=== PATIENT | female | born 2000 | race Caucasian/White ===

== ENCOUNTER → 2022-03-21 18:51 | Outpatient (ROUT) | payer OTHER, SELFPAY ==
[2022-03-21 19:26] LABS: Hematocrit 33.6 % (36-46); Hemoglobin 11.3 g/dL (12.0-16.0); Mean Corpuscular HGB Conc 33.7 % (30-36); Mean Corpuscular Hemoglobin 28.3 PG (26-34); Mean Corpuscular Volume 84.1 fL (80-100); Platelet Count 302 X10^3/uL (150-400); Red Blood Cell Count 3.99 X10^6/uL (4.0-5.2); Red Cell Distribution Width 12.9 % (11.6-14.8); White Blood Cell Count 8.3 X10^3/uL (4.5-11.0)
[2022-03-21 20:02] LABS: GTT (PREG) 1 Hour PP 50gm Dose 98 mg/dL (76-139)
== END ==
PROVIDERS: Visit Provider Nurse Practitioner Obstetrics & Gynecology
DX: Z34.90 Encounter for supervision of normal pregnancy, unspecified, unspecified trimester (principal); Z3A.26 26 weeks gestation of pregnancy
CPT/HCPCS: 82950; 85027

== ENCOUNTER 2022-06-13 08:05 | Inpatient (IN) | payer OTHER, SELFPAY ==
--- NOTE | 2022-06-13 08:24 | PM.OBHP.1 ---
OB HPI Date/Time Date of admission: 06/13/22 Date Patient Seen: 06/13/22 Time Patient Seen: 08:24 History of Present Condition Chief complaint: OBS OF LABOR : 1 Para: 0 Estimated Date of Delivery: 06/08/22 Estimated Gestational Age (weeks): 40.5 Narrative: GLENN ESPAÑA is a 21 year old female @ [id number] by LMP who presents for evaluation of labor. Contractions started last night at 2100 and intensified at 0300. Now breathing through regular contractions and requesting admission for labor. Uncomplicated PN care with CNM. Desires low intervention . , Barry, is present and supportive. History of Present care: good care, initiated at week # (12), number of visits (10) and pounds weight gain (30) Dating criteria: LMP confirmed by 1st trimester US Ultrasounds: normal mid trimester US Obstetrical complications: none Medical complications: none Preadmission Labs Blood type: O (+) positive -: Antibody screen: negative, GBS status: negative, HBsAG: negative, HIV: negative and RPR/VDLR: negative -: Chlamydia screen: not detected and Gonorrhea screen: not detected -: Rubella: immune and Varicella: immune HCT: 33.6 HCAB: negative Cell-free DNA: Negative 1 hr GTT: 95 Evaluation Evaluation Baseline heart rate: 140 Variability: Moderate (11-25) monitor accelerations: Present Monitor Decelerations: Absent Contraction Frequency (minutes): 4 Uterine Contraction Intensity: Moderate Dilation (cm): 4 Effacement (%): 90 Dilation: 3-4 cm Effacement: >/=80% station: -2 Position of cervix: posterior Consistency: soft Steiner score: 8 PFSH Medical History Depression Raynaud disease Family History Sister Depression Mother Multiple sclerosis Social History (Updated 06/13/22 @ 09:12 by Martita Cooper CNM) marital status: household members: spouse lives independently: Yes occupational status: employed Smoking Status: Never smoker substance use type: does not use Meds Home Medications and Allergies Home Medications Medication Instructions Recorded Confirmed Type No Known Home Medications 06/13/22 06/13/22 History Allergies Allergy/AdvReac Type Severity Reaction Status Date / Time No Known Drug Allergies Allergy Verified 06/13/22 08:59 Review of Systems Review of Systems ROS: Yes All systems reviewed with the patient and are negative except as otherwise documented OB Exam Narrative Exam Narrative: VS: BP 117/80, HR 89bpm Resp Effort & Inspection: normal respiratory effort and able to speak in complete sentences Auscultation: clear to auscultation bilaterally Cardio Rate: regular rate Rhythm: regular rhythm Heart Sounds: S1 normal and S2 normal Presentation: vertex Assessment and Plan Assessment and Plan Assessment and Plan narrative: A: Term nullipara Approaching active labor No indication for GBS prophylaxis Cat I FHR P: Admit, routine orders. May switch to IA. Labor support PRN. Reassess in 4 hours or sooner, PRN.
[2022-06-13 09:08] LABS: COVID19 -Nasal RAPID Negative (Negative)
--- NOTE | 2022-06-13 12:30 | PM.OBPNLAB ---
Date/Time Date Patient Seen: 06/13/22 Time Patient Seen: 12:20 Pain Control Pain control: tolerating well Comments: Sitting on ball, breathing through occasional contractions. Things have intensified since admission, but still not consistently strong. Agrees to CE. VS: BP 117/80, HR 89bpm Pelvic Exam Dilation (cm): 5 Effacement (%): 90 station: -1 Amniotic membrane status: Intact Contractions Monitor mode: External Pitocin rate (mU/min): 0 Contraction frequency (min): 3 Contraction duration (min): 1 Contraction intensity: Strong/Firm Status status: Category l (Reassuring by intermittent auscultation) Heart Rate Baseline: 130 Assessment and Plan Assessment: active labor Plan: continuous present management (expectant mangement) Comments: Labor support PRN. Reassess in 4 hours or sooner, PRN.
[2022-06-13 12:49] VITALS: BP 117/80
[2022-06-13 14:08] LABS: Add Manual Diff / Slide Review NO; Basophils Absolute Auto 0 /uL (0-100); Basophils Percent Auto 0.4 % (0-2); Eosinophils Absolute Auto 0 /uL (0-450); Eosinophils Percent Auto 0.6 % (2-4); Hematocrit 36.9 % (36-46); Hemoglobin 11.9 g/dL (12.0-16.0); Lymphocytes Absolute Auto 1200 /uL (1100-4500); Lymphocytes Percent Auto 13.8 % (25-40); Mean Corpuscular HGB Conc 32.3 % (30-36); Mean Corpuscular Hemoglobin 25.9 PG (26-34); Monocytes Absolute Auto 600 /uL (0-900); Monocytes Percent Auto 7.4 % (3-14); Neutrophils Absolute Auto 6800 /uL (1500-7000); Neutrophils Percent Auto 77.8 % (50-75); Platelet Count 295 X10^3/uL (150-400); Red Blood Cell Count 4.61 X10^6/uL (4.0-5.2); Red Cell Distribution Width 15.9 % (11.6-14.8); White Blood Cell Count 8.7 X10^3/uL (4.5-11.0)
--- NOTE | 2022-06-13 16:31 | PM.OBPNLAB ---
Date/Time Date Patient Seen: 06/13/22 Time Patient Seen: 16:32 Pain Control Pain control: tolerating well Comments: Standing and rocking in room. Breathing through strong contractions every 2 minutes. Has recently been noticing bloody show. Currently back on continuous EFM for decrease heard in FHR during intermittent auscultation. VS: BP 121/76, HR 76bpm, T 36.6C Temporal Pelvic Exam Dilation (cm): 5 Effacement (%): 90 station: -1 Comments: CE deferred. Contractions Monitor mode: External Pitocin rate (mU/min): 0 Contraction frequency (min): 2 Contraction duration (min): 1 Contraction intensity: Strong/Firm Status status: Category l Heart Rate Baseline: 135 Monitor Accelerations: Present Monitor Decelerations: Absent Monitor Variability: Moderate Assessment and Plan Assessment: active labor Plan: continuous present management (expectant management) Comments: Reassess in 4 hours or sooner, PRN.
[2022-06-13] MEDS: LACTATED RINGERS 1,000 ML 100 ML IV ×2 (18:02→19:06)
--- NOTE | 2022-06-13 19:10 | PM.OBPNLAB ---
Date/Time Date Patient Seen: 06/13/22 Time Patient Seen: 19:00 Pain Control Pain control: epidural Comments: Now resting comfortably after epidural placement. VS: 112/62, HR 79bpm, T 36.4C temporal Pelvic Exam Dilation (cm): 9 Effacement (%): 100 station: -1 Amniotic membrane status: Bulging Contractions Monitor mode: External Pitocin rate (mU/min): 0 Contraction frequency (min): 3 Contraction duration (min): 1 Contraction intensity: Strong/Firm Status status: Category ll Heart Rate Baseline: 140 Monitor Accelerations: Present Monitor Decelerations: Early and Variable Monitor Variability: Moderate Assessment and Plan Assessment: active labor Plan: continuous present management
--- NOTE | 2022-06-13 20:58 | PM.OBPRVD ---
Events: Meconium Stained Fluid Labor & Delivery Delivery date: 06/13/22 Intrapartal Events: None Cervical ripening method: none Induction method: none Delivery monitor: external FHT and external uterine Route of delivery: Episiotomy description: None L&D Laceration Description: Superficial (labial splits) Quantitative Blood Loss: 200 Anesthesia Type: Epidural Narrative: Second stage initiated at C/C/+1. Rapid descent of vertex with maternal efforts, coaching and encouragement. NSVB of a vigorous baby boy in JANE position over an intact vagina and perineum. There was no nuchal cord and the shoulders delivered without additional maneuvers. was placed on maternal abdomen for drying and skin to skin. Expectant management of the third stage of labor, per patient request. After cessation of pulsation, the cord was double clamped by CNM and cut by FOB. Cord blood sample was collected. Gentle cord traction and singe maternal push led to spontaneous, Schultze delivery of an apparently intatc placenta, membranes and 3VC. Fundus immediately firm and bleeding minimal. QBL 200mL. Both mother and baby stable and skin to skin as I left the room. [place] Baby 1: Infant gender: Male Presentation: vertex Position: Left Occiput Anterior Placenta delivery description: Spontaneous Cord Vessel Description: 3 Vessels score (1 min): 9 score (5 min): 9 weight: 3.375 kg Plan for aftercare: Routine care
[2022-06-13] MEDS: DERMOPLAST SPRAY 20% 60 ML 1 SPRAY TOP (21:54)
[2022-06-13] MEDS: KETOROLAC 30 MG/ML VIAL IV (21:55)
[2022-06-14] MEDS: IBUPROFEN 600 MG TABLET PO ×2 (04:08→15:39)
[2022-06-14] MEDS: ACETAMINOPHEN 325 MG TABLET 650 MG PO ×2 (04:08→15:39)
--- NOTE | 2022-06-14 11:05 | P.DS_ITS ---
Discharge Providers Provider Date of admission: 06/13/22 08:05 Discharge Date: 06/14/22 Primary care physician: Sidney Woods MD Consults: 06/14/22 19:58 Consult to Boat Engines Installer Routine Comment: Discharge provider: Martita Cooper CNM Summary Hospital Course Date Patient Seen: 06/14/22 Time Patient Seen: 11:05 Diagnoses: O80 Hospital Course: PPD1: Stable s/p NSVB. Voiding and ambulating independently. Tolerating a gen eral diet. Has been declining pain medication. with assistance from RN and feeling like this is improving. Lochia is light without clots. Eager for discharge to home this evening. Peripartum Data Infant Delivery Method: Natural Vaginal Laceration Description: None Episiotomy description: None Procedures: O80 complications: none [place] 1: Gender: Male Discharge Diagnosis (1) Encounter for full-term uncomplicated delivery: Status: Acute Status at Discharge Cognitive/behavioral status at discharge: oriented and calm Functional status at discharge: independent ambulation Overall status at discharge: patient is progressing back to baseline Time Spent with Patient Time attestation: Total time spent providing and/or coordinating discharge services: Time spent: Less than 30 minutes Objective Labs Result Diagrams: 06/13/22 13:42 Labs: Laboratory Results - last 24 hr 06/13/22 06/13/22 13:42 13:42 WBC 8.7 RBC 4.61 Hgb 11.9 L Hct 36.9 MCV 80.0 MCH 25.9 L MCHC 32.3 RDW 15.9 H Plt Count 295 Neut % (Auto) 77.8 H Lymph % (Auto) 13.8 L [place] % (Auto) 7.4 Eos % (Auto) 0.6 L Baso % (Auto) 0.4 Neut # (Auto) 6800 Lymph # (Auto) 1200 [place] # (Auto) 600 Eos # (Auto) 0 Baso # (Auto) 0 Blood Type O Positive Antibody Screen Negative Exam Vital Signs (past 8 hours): BP 117/74, HR 74bpm, RR 16/min, T 97.9F Temporal Other: Fundus firm @ u-1, lochia scant, no clots. Discharge Plan Discharge Plan Patient Disposition: Home Provider Discharge Comment: this evening after a few more independent breast feeds Discharge orders & Medications Prescriptions: New ibuprofen 600 mg Tablet 600 mg PO Q6HR PRN (Reason: Pain, Mild (1-3)) 14 Days Qty: 30 0RF No Action No Known Home Medications Follow up/Referrals: Sidney Woods MD [Primary Care Provider] - Martita Cooper CNM [[facility] Yard Labor Supervisor] - (Follow-up by phone 06/26/22 @ 3:45pm Follow-up in office 07/23/22 @ 1:30pm) Diet/Activity/Treatments Diet: Regular Activity: pelvic rest x 6 weeks Skin/Wound/Dressing Care Report to your healthcare provider any signs of infection, such as:: chills, fever, increased pain, unusual drainage and unusual redness Visit Report/Discharge Packet Instructions: DI for Depression Discharge Data Primary Care Provider: Sidney Woods
== END 2022-06-14 16:35 | disposition home or self-care (01) | DRG 807 ==
PROVIDERS: Admitting Provider Nurse Practitioner Obstetrics & Gynecology; PCP Family Medicine; Referring Provider Nurse Practitioner Obstetrics & Gynecology; Visit Provider Nurse Practitioner Obstetrics & Gynecology
DX: O80 Encounter for full-term uncomplicated delivery (principal); Z37.0 Single live birth; Z3A.40 40 weeks gestation of pregnancy; Z20.822 Contact with and (suspected) exposure to COVID-19
CPT/HCPCS: 36415; 59050; 85025; 86850; 86900; 86901; 87635; C9803; G0379; J1885

== ENCOUNTER → 2024-05-21 08:34 | Outpatient (CLI) | payer OTHER, SELFPAY ==
--- NOTE | 2024-05-21 08:35 | DI.US.S_ITS ---
PROCEDURE: US OB >= 14 WEEKS FETUS INDICATIONS: 2O WEEK ANATOMY SCAN OUTSIDE/PRIOR DATING DATA: Last menstrual period (LMP): 01/05/2024. LMP-based estimated date of delivery (YEFRI): 10/11/2024 working YEFRI. First dating scan (date and location): 03/09/2024. Estimated date of delivery (YEFRI) from first dating scan: 10/09/2024. TECHNIQUE: Real-time scanning was performed of the fetus, with image documentation and biometric measurements. COMPARISON: None available for review FINDINGS: General: A single living intrauterine gestation is present. Presentation: Vertex. Placenta: Placental position is posterior , without previa. Amniotic fluid index: 16.4 cm, normal range is 5-24 cm. Single deepest vertical pocket is 5.3 cm. heart rate: 145 beats per minute. Maternal cervical canal: 3.5 cm long. Normal lower limit is 2.5 cm. biometrics: Biparietal diameter: 4.6 cm, 20 weeks Head circumference: 17.6 cm, 20 weeks and 1 day Abdominal circumference: 16.5 cm, 21 weeks and 4 days Femur length: 3.4 cm, 20 weeks and 3 days Clinically estimated gestational age: 19 weeks and 4 days Composite gestational age from present scan: 20 weeks and 4 days Estimated weight and percentile: 388 g, 98% Anatomic survey: Neuro: Ventricles are non-dilated at less than 10 mm. Cisterna magna is normal at 3-11 mm. Cerebellum is normal in size and morphology. Nuchal skin fold: Normal at less than 6 mm between 14-21 weeks gestational age. Face: Nose and lips, facial profile are normal. Spine: No evidence for spina bifida. Heart: 4-chambered heart is present, with normal ventricular outflow tracts. Diaphragm: Diaphragm is intact. Stomach: Left-sided stomach is present. Kidneys: No hydronephrosis. Normal is less than 5 mm in 2nd trimester, less than 7 mm in 3rd trimester. Cord: 3-vessel cord has orthotopic insertion. Bladder: Normal in size. Extremities: All 4 extremities identified. Possible posterior fibroid measuring 4.2 x 3.6 cm. Placental cord origin is marginal, 1.1 cm mid superior edge IMPRESSION: Living intrauterine gestation in vertex presentation. Growth is larger than expected with EFW at the 98th percentile, driven primarily by the large abdominal circumference. Normal JAS Cord origin is marginal, 1.1 cm from the superior placental edge. Possible posterior uterine fibroid. Dictated by: Espinoza Ronquillo M.D. on 05/21/2024 at 11:01 Approved by: Espinoza Ronquillo M.D. on 05/21/2024 at 11:06
== END ==
PROVIDERS: PCP Family Medicine; Referring Provider Nurse Practitioner Obstetrics & Gynecology; Visit Provider Nurse Practitioner Obstetrics & Gynecology
DX: Z34.92 Encounter for supervision of normal pregnancy, unspecified, second trimester (principal); Z3A.20 20 weeks gestation of pregnancy
CPT/HCPCS: 76811

== ENCOUNTER 2024-10-12 09:20 | Inpatient (IN) | payer OTHER, SELFPAY ==
--- NOTE | 2024-10-12 09:57 | PM.OBHP.1 ---
OB HPI Date/Time Date of admission: 10/12/24 Date Patient Seen: 10/12/24 Time Patient Seen: 09:57 History of Present Condition Chief complaint: OBS OF LABOR : 2 Para: 1 Estimated Date of Delivery: 10/11/24 Estimated Gestational Age (weeks): 40.1 Narrative: Ashly Vazquez is a 23 year old female at 40.1 weeks by LMP concordant with 9week 1 day ultrasound. She sarted having irregular contractions 0t 2200 10/11/24, overnight they became more regular around 0600 am this morning. She has had a small amount of bloody show, and lost mucous plug this morning. No leaking of fluid. Good movement. Breathing well through contractions using comb in hand for distraction, coping well. Accompanied by her Barry. Planning unmedicated labor and . History of Present care: good care Dating criteria: LMP confirmed by 1st trimester US Ultrasounds: normal mid trimester US (growth 98% percentile, declined 3rd trimester US) Obstetrical complications: other (Second trimester anemia) Preadmission Labs Blood type: O (+) positive -: Antibody screen: negative, Cystic fibrosis screen: negative, GBS status: negative, HBsAG: negative, HIV: negative, HSV 1: negative, HSV 2: negative and RPR/VDLR: negative -: Chlamydia screen: not detected and Gonorrhea screen: not detected -: Rubella: immune and Varicella: immune HCT: 33.8 HCAB: negative PAP: Normal Cell-free DNA: Negative x3, MsAFP negative Urine: Negative 1 hr GTT: 87 Prior (ies) History: Hx # Term Pregnancies: 1 Hx # Pregnancies: 0 Number of Living Children: 1 Multiple births: 0 Spontaneous abortions: 0 Ectopic pregnancies: 0 Elective abortions: 0 Evaluation Evaluation Baseline heart rate: 140 Variability: Moderate (11-25) monitor accelerations: Present Monitor Decelerations: Absent and Variable Contraction Frequency (minutes): 2 (2-5) Uterine Contraction Intensity: Strong/Firm Category of Tracing: Appropriate for gestational age Status: Category l Dilation (cm): 5 Effacement (%): 90 Dilation: >/=5 cm Effacement: >/=80% station: -1 Position of cervix: anterior Consistency: soft Steiner score: 12 [facility] Medical History Depression Raynaud disease Family History (Updated 10/12/24 @ 10:18 by Asuncion Garg CNM, ARNP) Sister Depression Mother Multiple sclerosis Other Cancer Hypertension Social History marital status: household members: spouse lives independently: Yes occupational status: employed Smoking Status: Former smoker substance use type: does not use Meds Home Medications and Allergies Allergies Allergy/AdvReac Type Severity Reaction Status Date / Time No Known Drug Allergies Allergy Verified 06/13/22 08:59 Review of Systems Review of Systems ROS: Yes All systems reviewed with the patient and are negative except as otherwise documented OB Exam Vital signs Blood Pressure: 120/80 Pulse Rate: 88 Respiratory Rate: 16 Temperature: 36.6 F HENMT Head: normal to inspection and normocephalic Mouth: oral mucosae normal and lip normal Eyes General: appearance normal, both eyes and all related structures Resp Effort & Inspection: normal respiratory effort and able to speak in complete sentences Auscultation: clear to auscultation bilaterally Cardio Rate: regular rate Rhythm: regular rhythm Heart Sounds: S1 normal and S2 normal Extremities Lower extremity: Yes normal to inspection GI Inspection: normal to inspection Palpation: Yes soft (between contractions) Auscultation: normal bowel sounds Assessment and Plan Assessment and Plan Assessment and Plan narrative: A: 23yo Term Labor RH positive GBS negative Anemia 2nd trimester Cat I FHR P: Expectant management Intermittent auscultation as appropriate Nitrous and epidural as needed for pain relief Anticipate Time-Based Coding :: [TOTAL MINUTES] spent with patient and on the chart (including review of chart, obtaining history, exam, reviewing outside data, placing orders, documenting exam and treatment plan, and counseling patient) on [DATE].
[2024-10-12 10:32] VITALS: BP 120/80; PULSE 88; RESP 16; TEMP 2.6; TEMP 36.6
[2024-10-12 10:56] LABS: Add Manual Diff / Slide Review NO; Basophils Absolute Auto 0 /uL (0-100); Basophils Percent Auto 0.5 % (0-2); Eosinophils Absolute Auto 0 /uL (0-450); Eosinophils Percent Auto 0.4 % (2-4); Hematocrit 41.4 % (36-46); Lymphocytes Absolute Auto 1200 /uL (1100-4500); Lymphocytes Percent Auto 13.1 % (25-40); Mean Corpuscular HGB Conc 33.8 % (30-36); Mean Corpuscular Hemoglobin 28.7 PG (26-34); Monocytes Absolute Auto 800 /uL (0-900); Monocytes Percent Auto 8.6 % (3-14); Neutrophils Absolute Auto 7200 /uL (1500-7000); Neutrophils Percent Auto 77.4 % (50-75); Platelet Count 237 X10^3/uL (150-400); Red Blood Cell Count 4.87 X10^6/uL (4.0-5.2); Red Cell Distribution Width 15.5 % (11.6-14.8); White Blood Cell Count 9.3 X10^3/uL (4.5-11.0)
--- NOTE | 2024-10-12 11:58 | PM.AN.REGBLK ---
Regional Block Pre-procedure PMH/ROS narrative: active labor PSH/Anesthesia history narrative: epidural x 1 no complications ASA Class: II Labs: Hct 41.4 % (36-46) 10/12/24 10:38 Plt Count 237 X10^3/uL (150-400) 10/12/24 10:38 Medications: Current Medications Generic Name Dose Route Start Last Admin Trade Name Jhonq PRN Reason Stop Dose Admin Acetaminophen 975 mg 10/12/24 09:52 Acetaminophen 325 Mg Tablet PO Q8H PRN Pain, Mild (1-3) Calcium Carbonate 1,000 mg 10/12/24 09:52 Calcium Carbonate 500 Mg Tab PO Q2HR PRN Dyspepsia Carboprost Tromethamine 250 mcg 10/12/24 09:36 Carboprost 250 Mcg/Ml Ampul IM Q90M PRN Bleeding Oxytocin/Lactated Ringer's 30 unit in 500 mls @ 200 mls/hr 10/12/24 09:36 Oxytocin Premix IV CONT PRN Bleeding Protocol Tranexamic Acid 1,000 mg/ 100 mls @ 600 mls/hr 10/12/24 09:36 Sodium Chloride IV NOW PRN Bleeding Lactated Ringer's 1,000 mls @ 100 mls/hr 10/12/24 09:45 Lactated Ringers IV 10/12/24 19:44 CONT MONE Lidocaine HCl 20 ml 10/12/24 09:36 Lidocaine 1% 20 Ml INJ INTRA-OP PRN Post Delivery Methylergonovine Maleate 0.2 mg 10/12/24 09:36 Methylergonovine 0.2 Mg Tablet PO Q6HR PRN Heavy Bleeding Methylergonovine Maleate 0.2 mg 10/12/24 09:36 Methylergonovine 0.2 Mg/Ml Vial IM NOW PRN Bleeding Mineral Oil 30 ml 10/12/24 09:36 Mineral Oil 30 Ml Udc TOP PRN PRN Version Misoprostol 800 mcg 10/12/24 09:36 Misoprostol 200 Mcg Tablet MO NOW PRN Bleeding Misoprostol 400 mcg 10/12/24 09:36 Misoprostol 200 Mcg Tablet SL NOW PRN Bleeding Naloxone HCl 0.2 mg 10/12/24 09:36 Naloxone 0.4 Mg/Ml Vial IV Q2MIN PRN Opiate Reversal Ondansetron HCl 4 mg 10/12/24 09:52 Ondansetron 4 Mg/2 Ml Inj IV Q4HR PRN Nausea And Vomiting Oxytocin 10 unit 10/12/24 09:36 Oxytocin 10 Unit/Ml Vial IM NOW PRN Bleeding Allergies: Allergies Allergy/AdvReac Type Severity Reaction Status Date / Time No Known Drug Allergies Allergy Verified 06/13/22 08:59 --: DPE with PCEA. pt drape and prep with sterile tchnique. v/s/s. l3 l4 interspace identified. lido 1% 3 cc skin wheel. jose luis advanced CÉSAR achieved. 27 g pencil point SAB needle CSF +, heme -. catheter threaded. test and loading dose administered as charted with infusion to follow. Procedure Insertion date: 10/12/24 Insertion time: 11:43 Prep/Local: betadine x3 (chlorhexadine) Interspace: l3 l4 Patient position: sitting Needle: 18 gauge Jose Luis Loss of resistance with: saline CÉSAR at (cm): 6 Catheter placed at SKIN (cm): 15 Sensory level: t10 Initial Medications TEST DOSE time: 11:43 TEST DOSE: 1.5% lidocaine with epinephrine 1:200k (mL): 3 BOLUS DOSE time: 11:45 BOLUS DOSE (mL): 4 BOLUS DOSE med: other (infusate) Infusion INFUSION: 0.125% bupivacaine and with fentanyl 2 mcg/mL Initial rate (mL/hr): 10 Post-procedure Anesthesia date START: 10/12/24 Anesthesia time START: 11:50
[2024-10-12] MEDS: LACTATED RINGERS 1,000 ML 100 ML IV (12:02)
[2024-10-12] MEDS: OXYTOCIN PREMIX 30 UNIT/500 ML PLAST..BAG 350 UNIT IV (13:00)
--- NOTE | 2024-10-12 14:06 | PM.OBPRVD ---
Labor & Delivery Delivery date: 10/12/24 Delivery Time: 12:52 Intrapartal Events: None Cervical ripening method: none Induction method: none Delivery monitor: external FHT and external uterine Route of delivery: L&D Laceration Description: None Quantitative Blood Loss: 315 Anesthesia Type: Epidural Complications: None Narrative: Labor progressed rapidly after arrival to unit. Contractions regular and painful on arrival. CE on arrival 5cm/100%/-1 station. Used nitrous and movement for comfort measures, requested epidural at 1149. After epidural she had good pain relief until she was complete and feeling the urge to push at 1235. She pushed effectively for a short 2nd stage. FHR was Cat II throughout 2nd stage. NSVB of vigorous male at 1252, direct OP presentation, no nuchal cord. Shoulders delivered easily with no additional maneuvers. Baby was placed on maternal abdomen when she was ready to receive him. Apgars 9/9. Oxytocin 30units/500ml LR started at 250cc/hr for AMTSL. They remained skin to skin while cord was cut and placenta was delivered. Placenta delivered spontaneously with maternal efforts and appeared to be intact. 3 vessel cord clamped and cut by CNM and FOB at 10 minutes of life after cord pulsing had stopped. Cord blood collected for blood typing. Perineum inspected and found to be intact. Blood loss measured and estimated loss is 315mL. Mom and baby left stable and is being initiated. They are thrilled to meet their second son, Brian. Asuncion WESTON, RAQUELM, IBCLC and Beatrice Forman RN, SNM [place] [facility] 1: gender: Male Presentation: vertex Position: Occiput Posterior Placenta delivery description: Spontaneous Cord Vessel Description: 3 Vessels score (1 min): 9 score (5 min): 9 weight: 3.79 kg Plan for aftercare: Routine care
[2024-10-12 14:14] VITALS: BP 120/80
[2024-10-12] MEDS: KETOROLAC 30 MG/ML VIAL IV (15:15)
--- NOTE | 2024-10-12 19:31 | PM.OBDS.1 ---
Discharge Providers Provider Date of admission: 10/12/24 09:20 Discharge Date: 10/12/24 Primary care physician: Sidney Woods MD Consults: 10/13/24 14:00 Consult to Tutorial Laboratory Supervisor Routine Comment: Discharge provider: Asuncion Garg CNM, ARNP Summary Hospital Course Date Patient Seen: 10/12/24 Time Patient Seen: 19:31 Diagnoses: O80 Hospital Course: Arrived to hospital in active labor, progressed without augmentation without interventions. Epidural for pain relief. Short second stage resulted in NSVB of baby boy. QBL 315 mL. Normal course with early discharge. . Peripartum Data Delivery Method: Natural Vaginal Laceration Description: None 1: Gender: Male Disposition of : home Discharge Diagnosis (1) Encounter for full-term uncomplicated delivery: Start Date: 10/12/24 Status: Acute Status at Discharge Cognitive/behavioral status at discharge: oriented and calm Functional status at discharge: independent ambulation Overall status at discharge: patient is progressing back to baseline Time Spent with Patient Time attestation: Total time spent providing and/or coordinating discharge services: Time spent: Less than 30 minutes Specific discharge activities: discharge teaching Objective Labs 10/12/24 10:38 Labs: Laboratory Results - last 24 hr 10/12/24 10:38 WBC 9.3 RBC 4.87 Hgb 14.0 Hct 41.4 MCV 85.0 MCH 28.7 MCHC 33.8 RDW 15.5 H Plt Count 237 Neut % (Auto) 77.4 H Lymph % (Auto) 13.1 L [place] % (Auto) 8.6 Eos % (Auto) 0.4 L Baso % (Auto) 0.5 Neut # (Auto) 7200 H Lymph # (Auto) 1200 [place] # (Auto) 800 Eos # (Auto) 0 Baso # (Auto) 0 Blood Type O Positive Antibody Screen Negative Exam Vital Signs (past 8 hours): - 10/12/24 14:14 Blood Pressure 120/80 Other: Fundus firm at U, midline. Lochia scant Perineum intact with minimal edema Discharge Plan Discharge Plan Patient Disposition: Home Discharge orders & Medications Follow up/Referrals: Sidney Woods MD [Primary Care Provider] - Asuncion Garg CNM, ARNP [Advanced Pooling Operator] - 1 Day (Follow up tomorrow for 24 hour BP check. visits: 2 weeks and 6 weeks as scheduled; details e-mailed. ) Diet/Activity/Treatments Diet: Diet as Tolerated and Regular Diet comment: increase fiber and fluids for healing and soft stool Activity: low hernandez x 2 weeks Cold/Heat Therapy: as needed Skin/Wound/Dressing Care Skin care: usual care Report to your healthcare provider any signs of infection, such as:: chills, fever, unusual drainage and unusual redness Visit Report/Discharge Packet Instructions: DI for Depression, Depression Stand Alone Forms: Patient Portal/API, Stroke Signs & Symptoms Discharge Data Primary Care Provider: Sidney Woods Attending Provider: Asuncion Garg Admit Date/Time: 10/12/24 09:20
[2024-10-12 19:50] VITALS: BP 120/80; PULSE 88; RESP 16; TEMP 2.6; TEMP 36.6
== END 2024-10-12 19:55 | disposition home or self-care (01) | DRG 807 ==
PROVIDERS: Admitting Provider Advanced Practice Midwife; PCP Family Medicine; Referring Provider Advanced Practice Midwife; Visit Provider Advanced Practice Midwife
DX: O76 Abnormality in fetal heart rate and rhythm complicating labor and delivery (principal); Z37.0 Single live birth; Z3A.40 40 weeks gestation of pregnancy
CPT/HCPCS: 59025; 59050; 85025; 86850; 86900; 86901; G0378; G0379; J1885; J2590